=== PATIENT | female | born 1975 | race Caucasian/White ===

== ENCOUNTER 2018-09-13 14:07 | Emergency (ER) | payer BC ==
[~2018-09-13] VITALS: Ht 180.3 cm; Wt 73.5 kg
[2018-09-13 14:07] VITALS: BP_SYST 145
[2018-09-13] MEDS ORDERED: ACETAMINOPHEN 325 MG TABLET PO ONE (14:30)
[2018-09-13 15:47] LABS: BASOPHILS % (AUTO) 0.4 % (0.0-2.0); EOSINOPHILS # (AUTO) 0.1 K/uL (0.0-0.4); EOSINOPHILS % (AUTO) 0.6 % (0.0-4.0); HEMATOCRIT 42.5 % (36-48); HEMOGLOBIN 14.3 g/dL (12.0-16.0); LYMPHOCYTES % (AUTO) 8.5 % (20.5-51.5); MEAN CORPUSCULAR HEMOGLOBIN 29 pg (27-31); MEAN CORPUSCULAR HGB CONC 34 % (32-36); MEAN CORPUSCULAR VOLUME 86 fL (79.0-98.0); MONOCYTES # (AUTO) 0.6 K/uL (0.0-1.0); MONOCYTES % (AUTO) 5.4 % (1.7-9.3); NEUTROPHILS # (AUTO) 9.6 K/uL (1.8-7.7); NEUTROPHILS % (AUTO) 85.1 % (40.0-70.0); PLATELET COUNT (AUTO) 157 K/uL (130-430); RED BLOOD CELL COUNT(AUTO) 4.92 MIL/uL (4.2-6.2); WHITE BLOOD COUNT (AUTO) 11.2 K/uL (4.8-10.8)
[2018-09-13 16:01] LABS: ANION GAP 9 (5-15); CALCIUM 9.4 mg/dL (8.4-11.0); CHLORIDE 103 mmol/L (98-107); GLUCOSE 98 mg/dL (70-99); POTASSIUM 3.8 mmol/L (3.5-5.1); SODIUM SERUM 137 mmol/L (136-145); UREA NITROGEN, BLOOD 12 mg/dL (8-21)
[2018-09-13 16:03] LABS: GFR AFRICAN AMERICAN 101 mL/min (>90)
[2018-09-13 16:05] LABS: ALANINE AMINOTRANSFERASE 15 U/L (12-78); ALBUMIN 4.2 g/dL (3.4-4.8); ASPARTATE AMINOTRANSFERASE 15 U/L (10-37); TOTAL BILIRUBIN 0.6 mg/dL (0.0-1.0)
[2018-09-13 16:06] LABS: PROTHROMBIN TIME 10.4 SECS (9.5-12.5)
[2018-09-13 16:08] LABS: ALCOHOL, BLOOD < 3 mg/dL (<10)
[2018-09-13 16:56] VITALS: BP_SYST 143
== END 2018-09-13 16:56 | disposition home or self-care (01) ==
LOC: SED 14:07
DX: S00.83XA Contusion of other part of head, initial encounter (principal); W18.09XA Striking against other object with subsequent fall, initial encounter; Y93.89 Activity, other specified; Y92.89 Other specified places as the place of occurrence of the external cause; Y99.8 Other external cause status
CPT/HCPCS: 36415; 70450; 71250; 80053; 84484; 84703; 85025; 85610; 85730; 93005; 99284; G0482